=== PATIENT | female | born 1965 | race Caucasian/White ===

== ENCOUNTER → 2017-10-13 | Outpatient (CLI) | payer OTHER ==
[~2017-10-13] MED LIST: ALBU8.5H8 INH; AMLO5TAB2 PO; FLUT1DIS3 INH; LOSA50TA6 PO
== END | disposition home or self-care (01) ==
LOC: CFH 11:05 → EDSTATUS 11:15
PROVIDERS: ATTEND Nurse Practitioner Family
DX: Z12.31 Encounter for screening mammogram for malignant neoplasm of breast (principal)
CPT/HCPCS: 77067

== ENCOUNTER → 2018-01-06 | Outpatient (CLI) | payer OTHER ==
[~2018-01-06] MED LIST changes: +GADOBUTROL 7.5 MMOL/7.5 ML VIAL ONE
== END | disposition home or self-care (01) ==
LOC: CFH 13:31
PROVIDERS: ATTEND Obstetrics & Gynecology
DX: Z08 Encounter for follow-up examination after completed treatment for malignant neoplasm (principal); Z85.3 Personal history of malignant neoplasm of breast
CPT/HCPCS: A9585; C8908

== ENCOUNTER → 2018-04-29 | Outpatient (CLI) | payer OTHER ==
[~2018-04-29] MED LIST changes: -AMLO5TAB2 PO; +AMLO5TAB7 PO; -GADOBUTROL 7.5 MMOL/7.5 ML VIAL ONE; -LOSA50TA6 PO; +LOSA50TA7 PO
== END | disposition home or self-care (01) ==
LOC: CFH 15:16
PROVIDERS: ATTEND Nurse Practitioner Family
DX: M25.562 Pain in left knee (principal)

== ENCOUNTER 2019-05-06 12:55 | Outpatient (CLI) ==
[~2019-05-06 12:55] MED LIST changes: +AMLO-150 PO; -AMLO5TAB7 PO; +LOSA50TA14 PO; -LOSA50TA7 PO
[2019-05-06] MEDS ORDERED: GADOTERATE 10 MMOL/20 ML VIAL ONE (15:41)
== END 2019-05-06 23:59 | disposition home or self-care (01) ==
LOC: CFH 12:55
PROVIDERS: ATTEND Obstetrics & Gynecology Gynecology
DX: Z12.31 Encounter for screening mammogram for malignant neoplasm of breast (principal); Z80.3 Family history of malignant neoplasm of breast
CPT/HCPCS: A9575; C8908; C8937; 77049

== ENCOUNTER 2020-01-23 11:06 | Inpatient (IN) | payer OTHER ==
[~2020-01-23] VITALS: Ht 170.2 cm; Wt 92.6 kg
[2020-01-23] MEDS ORDERED: SODIUM CHLORIDE 0.9% 1,000 ML IV ONE (11:23)
[2020-01-23] MEDS ORDERED: ONDANSETRON 2MG/ML, 2ML IVPush ONE (11:30)
[2020-01-23] MEDS ORDERED: MORPHINE SULFATE 4 MG/ML, 1ML IVPush PRN (11:30)
[2020-01-23] MEDS ORDERED: SODIUM CHLORIDE FLUSH 10ML SYR IVF ONE (11:30)
[2020-01-23] MEDS ORDERED: MORPHINE SULFATE 4 MG/ML, 1ML ONE (11:37)
[2020-01-23] MEDS ORDERED: ONDANSETRON 2MG/ML, 2ML ONE (11:37)
[2020-01-23 11:52] LABS: BASOPHILS % (AUTO) 0 % (0-1); EOSINOPHILS # (AUTO) 0.02 x10^3/uL (0-0.4); EOSINOPHILS % (AUTO) 0 % (1-7); LYMPHOCYTES % (AUTO) 4 % (22-44); MD NO; MEAN CORPUSCULAR HEMOGLOBIN 31.4 pg (27.0-34.8); MEAN CORPUSCULAR HGB CONC 33.4 g/dL (32.4-35.8); MEAN CORPUSCULAR VOLUME 94.2 fL (80-100); MEAN PLATELET VOLUME 9.2 fL (7.4-10.4); MONOCYTES # (AUTO) 0.27 x10^3/uL (0.2-0.8); MONOCYTES % (AUTO) 4 % (2-9); NEUTROPHILS % (AUTO) 92 % (42-75); PLATELET COUNT 247 x10^3/uL (130-400); RED BLOOD COUNT 4.59 x10^6/uL (3.82-5.3); RED CELL DISTRIBUTION WIDTH 13.5 % (9.6-15.2)
--- NOTE | 2020-01-23 11:58 | NUR ---
C/O INTERMITTENT SEVERE CRAMPING, GENERALIZED ABD PAIN, DIARRHEA, N/V. STARTED 031 TODAY. TOOK IMMODIUM (LAST DOSE 1000) AND ACTIVATED CHARCOAL (LAST DOSE 1000). LAST ORAL INTAKE: FOOD 1899. ATE AT HOME. PT'S MOM, WHO LIVES WITH THEM, HAS HAD DIARRHEA (HAS HX OF DIVERTICULITIS). NEITHER PT NOR MOM HAVE BEEN ON ANTIBIOTICS RECENTLY. LMP: A COUPLE OF WEEKS AGO. DENIES UTI SX.
[2020-01-23 12:03] LABS: ALANINE AMINOTRANSFERASE 118 U/L (12-78); ALBUMIN 3.7 g/dL (3.4-5.0); ANION GAP 9 mmol/L (5-15); CALCIUM 9.5 mg/dL (8.5-10.1); CHLORIDE 107 mmol/L (98-107); CREATININE 0.97 mg/dL (0.55-1.02)
[2020-01-23 12:05] LABS: ALKALINE PHOSPHATASE 56 U/L (45-117); BILIRUBIN,TOTAL 0.7 mg/dL (0.2-1.0); TOTAL PROTEIN 7.5 g/dL (6.4-8.2)
[2020-01-23] MEDS ORDERED: MONT10TA11 PO (12:06)
[2020-01-23] MEDS ORDERED: AMLO5TAB10 PO (12:06)
[2020-01-23] MEDS ORDERED: COLE1TAB2 PO (12:06)
[2020-01-23] MEDS ORDERED: VALS80TA30 PO (12:06)
[2020-01-23] MEDS ORDERED: FENO145T19 PO (12:06)
--- NOTE | 2020-01-23 12:19 | NUR ---
AMBUALTORY TO & FROM P[facility]O BR W/OUT INCIDENT; GAIT SLOW & STEADY. VOIDED SPECIMEN PROVIDED. PT REPORTS DECREASE IN CRAMPING AND PAIN.
[2020-01-23 12:35] LABS: MICROSCOPIC INDICATED
--- NOTE | 2020-01-23 12:35 | NUR ---
PT REPORTS NAUSEA FROM MRI CONTRAST, NOT CT CONTRAST, PREVIOUSLY REPORTED. CONSULTED DR TOURE. PT TO CT PER YUNIEL
[2020-01-23] MEDS ORDERED: OMNIPAQUE 350 MG/ML, 100ML BOTTLE ONE (12:46)
--- NOTE | 2020-01-23 15:05 | NUR ---
[facility] AT .
[2020-01-23] MEDS ORDERED: METRONIDAZOLE PMX 500MG/100ML 100 ML IV SCH (15:30)
[2020-01-23] MEDS ORDERED: ONDANSETRON 2MG/ML, 2ML IVPush PRN (15:30)
[2020-01-23] MEDS ORDERED: CEFTRIAXONE PMX 1GM/50ML 50 ML IV SCH (15:30)
[2020-01-23] MEDS ORDERED: OXYcodone IR 5MG TABLET PO PRN (15:30)
[2020-01-23 15:46] LABS: TROPONIN I < 0.015 ng/mL (0.000-0.045)
--- NOTE | 2020-01-23 16:02 | NUR ---
PT REPORT TO BALDEMAR NAVARRO FOR ROOM [id number]
[2020-01-23] MEDS ORDERED: CEFTRIAXONE PMX 1GM/50ML 50 ML ONE (16:19)
[2020-01-23] MEDS ORDERED: METRONIDAZOLE PMX 500MG/100ML 100 ML ONE (16:19)
[2020-01-23] MEDS ORDERED: HEPARIN 5,000 UNITS/ML, 1ML ONE (16:19)
[2020-01-23] MEDS ORDERED: PANTOPRAZOLE 40 MG IV ONE (16:19)
[2020-01-23] MEDS: PANTOPRAZOLE 40 MG IV IVPush SCH (16:31)
[2020-01-23] MEDS: HEPARIN 5,000 UNITS/ML, 1ML SQ SCH ×2 (16:40→23:52)
--- NOTE | 2020-01-23 16:40 | NUR ---
NS INFUSING. PROTONIX, HEPARIN GIVEN PER EMAR. ROCEPHIN HUNG, INFUSING AT 100ML/HR VIA PUMP. FLAGYL WILL BE SENT TO FLOOR W/ PT. IV SITE PATENT.
[2020-01-23] MEDS: SODIUM CHLORIDE 0.9% 1,000 ML IV SCH (17:12)
[2020-01-23] MEDS: METRONIDAZOLE PMX 500MG/100ML 100 ML IV SCH ×2 (17:20→17:21)
[2020-01-23] MEDS: morphine SULFATE 10 MG/ML, 1ML IVPush PRN ×2 (18:15→23:52)
[2020-01-23 20:39] VITALS: BP 125/78
[2020-01-23 20:54] LABS: TROPONIN I < 0.015 ng/mL (0.000-0.045)
[2020-01-23] MEDS: MONTELUKAST 10 MG TABLET PO SCH (21:00)
[2020-01-24 01:21] VITALS: BP 114/72
[2020-01-24] MEDS: METRONIDAZOLE PMX 500MG/100ML 100 ML IV SCH ×3 (03:15→19:32)
[2020-01-24] MEDS: SODIUM CHLORIDE 0.9% 1,000 ML IV SCH ×2 (03:15→13:46)
[2020-01-24] MEDS: PANTOPRAZOLE 40 MG IV IVPush SCH ×2 (03:15→17:15)
[2020-01-24 05:02] LABS: BASOPHILS # (AUTO) 0.01 x10^3/uL (0-0.1); BASOPHILS % (AUTO) 0 % (0-1); EOSINOPHILS # (AUTO) 0.05 x10^3/uL (0-0.4); EOSINOPHILS % (AUTO) 1 % (1-7); LYMPHOCYTES # (AUTO) 0.84 x10^3/uL (1-3.4); LYMPHOCYTES % (AUTO) 18 % (22-44); MD NO; MEAN CORPUSCULAR HEMOGLOBIN 31.4 pg (27.0-34.8); MEAN CORPUSCULAR HGB CONC 33.5 g/dL (32.4-35.8); MEAN CORPUSCULAR VOLUME 93.7 fL (80-100); MEAN PLATELET VOLUME 9.1 fL (7.4-10.4); MONOCYTES # (AUTO) 0.37 x10^3/uL (0.2-0.8); MONOCYTES % (AUTO) 8 % (2-9); NEUTROPHILS # (AUTO) 3.45 x10^3/uL (1.8-6.8); NEUTROPHILS % (AUTO) 73 % (42-75); PLATELET COUNT 183 x10^3/uL (130-400); RED BLOOD COUNT 3.94 x10^6/uL (3.82-5.3); RED CELL DISTRIBUTION WIDTH 13.9 % (9.6-15.2)
[2020-01-24 05:13] LABS: ALANINE AMINOTRANSFERASE 118 U/L (12-78); ANION GAP 7 mmol/L (5-15); CHLORIDE 109 mmol/L (98-107); CREATININE 1.02 mg/dL (0.55-1.02)
[2020-01-24 05:24] LABS: ALKALINE PHOSPHATASE 48 U/L (45-117); BILIRUBIN,TOTAL 0.4 mg/dL (0.2-1.0); TOTAL PROTEIN 6.1 g/dL (6.4-8.2)
[2020-01-24 06:58] VITALS: BP 132/78
[2020-01-24] MEDS: HEPARIN 5,000 UNITS/ML, 1ML SQ SCH ×3 (08:00→23:25)
[2020-01-24] MEDS: AMLODIPINE 5 MG TABLET PO SCH (09:03)
[2020-01-24 14:11] VITALS: BP 139/81
[2020-01-24] MEDS: NS + 20MEQ KCL 1,000 ML IV SCH (17:15)
[2020-01-24] MEDS: CEFTRIAXONE PMX 1GM/50ML 50 ML IV SCH (17:15)
[2020-01-24] MEDS: ACETAMINOPHEN 325 MG TABLET PO PRN ×2 (17:22→23:24)
[2020-01-24] MEDS: MONTELUKAST 10 MG TABLET PO SCH (19:32)
[2020-01-24 20:27] VITALS: BP 122/72
[2020-01-25 01:41] LABS: CLOSTRIDIUM DIFFICILE ANTIGEN NEGATIVE; CLOSTRIDIUM DIFFICILE TOXIN NEGATIVE (Negative)
[2020-01-25 01:57] VITALS: BP 136/75
[2020-01-25] MEDS: PANTOPRAZOLE 40 MG IV IVPush SCH ×2 (03:33→18:29)
[2020-01-25] MEDS: NS + 20MEQ KCL 1,000 ML IV SCH (03:34)
[2020-01-25] MEDS: METRONIDAZOLE PMX 500MG/100ML 100 ML IV SCH ×3 (03:34→19:34)
[2020-01-25 05:44] LABS: BASOPHILS # (AUTO) 0.02 x10^3/uL (0-0.1); BASOPHILS % (AUTO) 0 % (0-1); EOSINOPHILS # (AUTO) 0.17 x10^3/uL (0-0.4); EOSINOPHILS % (AUTO) 3 % (1-7); LYMPHOCYTES # (AUTO) 1.09 x10^3/uL (1-3.4); LYMPHOCYTES % (AUTO) 21 % (22-44); MD NO; MEAN CORPUSCULAR HEMOGLOBIN 31.2 pg (27.0-34.8); MEAN CORPUSCULAR HGB CONC 33.4 g/dL (32.4-35.8); MEAN CORPUSCULAR VOLUME 93.5 fL (80-100); MEAN PLATELET VOLUME 9.4 fL (7.4-10.4); MONOCYTES % (AUTO) 10 % (2-9); NEUTROPHILS # (AUTO) 3.47 x10^3/uL (1.8-6.8); NEUTROPHILS % (AUTO) 66 % (42-75); PLATELET COUNT 169 x10^3/uL (130-400); RED BLOOD COUNT 3.63 x10^6/uL (3.82-5.3); RED CELL DISTRIBUTION WIDTH 13.5 % (9.6-15.2)
[2020-01-25 05:59] LABS: ALANINE AMINOTRANSFERASE 116 U/L (12-78); ALBUMIN 2.8 g/dL (3.4-5.0); ANION GAP 7 mmol/L (5-15); CALCIUM 8.1 mg/dL (8.5-10.1); CHLORIDE 108 mmol/L (98-107); CREATININE 0.79 mg/dL (0.55-1.02)
[2020-01-25 06:01] LABS: ALKALINE PHOSPHATASE 59 U/L (45-117); BILIRUBIN,TOTAL 0.5 mg/dL (0.2-1.0); TOTAL PROTEIN 6.1 g/dL (6.4-8.2)
[2020-01-25 07:52] VITALS: BP 131/76
[2020-01-25] MEDS: HEPARIN 5,000 UNITS/ML, 1ML SQ SCH ×3 (08:00→23:23)
[2020-01-25] MEDS ORDERED: ADVAIR 250 MCG INH SCH (09:00)
[2020-01-25] MEDS: ALBUTEROL HOMEINH SCH (09:00)
[2020-01-25] MEDS: ADVAIR HOMEINH SCH (09:00)
[2020-01-25] MEDS ORDERED: TEMPLATE NON-FORMULARY MED. (albuterol sulfate 1 PUFF) INH SCH (09:00)
[2020-01-25] MEDS: AMLODIPINE 5 MG TABLET PO SCH (11:24)
[2020-01-25] MEDS: ACETAMINOPHEN 325 MG TABLET PO PRN (11:39)
[2020-01-25] MEDS ORDERED: POTASSIUM CHLORIDE 20 MEQ TAB.ER.PRT PO ONE ×2 (14:00→20:00)
[2020-01-25 14:34] VITALS: BP 116/65
[2020-01-25] MEDS: CEFTRIAXONE PMX 1GM/50ML 50 ML IV SCH (18:21)
[2020-01-25] MEDS ORDERED: ACETAMINOPHEN 325 MG TABLET PO PRN (18:49)
[2020-01-25] MEDS: MONTELUKAST 10 MG TABLET PO SCH (20:10)
[2020-01-25] MEDS: SIMETHICONE 125 MG CHEW TAB PO SCH (20:10)
[2020-01-25 23:34] VITALS: BP 120/76
[2020-01-26 02:57] VITALS: BP 115/70
[2020-01-26] MEDS: METRONIDAZOLE PMX 500MG/100ML 100 ML IV SCH ×3 (02:59→19:25)
[2020-01-26 05:49] LABS: BASOPHILS # (AUTO) 0.01 x10^3/uL (0-0.1); BASOPHILS % (AUTO) 0 % (0-1); EOSINOPHILS # (AUTO) 0.18 x10^3/uL (0-0.4); EOSINOPHILS % (AUTO) 3 % (1-7); LYMPHOCYTES # (AUTO) 1.08 x10^3/uL (1-3.4); LYMPHOCYTES % (AUTO) 15 % (22-44); MD NO; MEAN CORPUSCULAR HEMOGLOBIN 31.2 pg (27.0-34.8); MEAN CORPUSCULAR HGB CONC 33.6 g/dL (32.4-35.8); MEAN PLATELET VOLUME 9.4 fL (7.4-10.4); MONOCYTES # (AUTO) 0.56 x10^3/uL (0.2-0.8); MONOCYTES % (AUTO) 8 % (2-9); NEUTROPHILS % (AUTO) 74 % (42-75); PLATELET COUNT 205 x10^3/uL (130-400); RED BLOOD COUNT 3.86 x10^6/uL (3.82-5.3); RED CELL DISTRIBUTION WIDTH 13.4 % (9.6-15.2)
[2020-01-26 06:01] LABS: CHLORIDE 109 mmol/L (98-107)
[2020-01-26 06:14] LABS: ALANINE AMINOTRANSFERASE 145 U/L (12-78); ALKALINE PHOSPHATASE 93 U/L (45-117); ANION GAP 7 mmol/L (5-15); BILIRUBIN,TOTAL 0.5 mg/dL (0.2-1.0); CALCIUM 8.7 mg/dL (8.5-10.1); CREATININE 0.82 mg/dL (0.55-1.02); TOTAL PROTEIN 6.8 g/dL (6.4-8.2)
[2020-01-26] MEDS: PANTOPRAZOLE 40 MG IV IVPush SCH (06:50)
[2020-01-26 07:49] VITALS: BP 137/78
[2020-01-26] MEDS: HEPARIN 5,000 UNITS/ML, 1ML SQ SCH ×3 (08:00→23:59)
[2020-01-26 08:24] LABS: C-REACTIVE PROTEIN, QUANT 6.1 mg/dL (0.02-0.49)
[2020-01-26] MEDS: ALBUTEROL HOMEINH SCH (09:00)
[2020-01-26] MEDS: ADVAIR HOMEINH SCH (09:00)
[2020-01-26 09:33] LABS: HCT (SEDRATE) 35.9 % (34.6-47.8)
[2020-01-26] MEDS: AMLODIPINE 5 MG TABLET PO SCH (11:04)
[2020-01-26] MEDS: POTASSIUM CHLORIDE 20 MEQ TAB.ER.PRT PO SCH ×2 (11:04→17:42)
[2020-01-26] MEDS: SIMETHICONE 125 MG CHEW TAB PO SCH ×2 (11:04→20:56)
[2020-01-26] MEDS: PANTOPRAZOLE 40MG TABLET PO SCH (11:12)
[2020-01-26 12:36] VITALS: BP 147/78
[2020-01-26] MEDS: LOPERAMIDE 2 MG CAPSULE PO PRN ×2 (14:30→20:52)
[2020-01-26] MEDS: SODIUM CHLORIDE 0.9% 1,000 ML IV SCH (14:32)
[2020-01-26] MEDS: CEFTRIAXONE PMX 1GM/50ML 50 ML IV SCH (17:41)
[2020-01-26 19:40] VITALS: BP 128/78
[2020-01-26] MEDS: MONTELUKAST 10 MG TABLET PO SCH (20:56)
[2020-01-27 01:30] VITALS: BP 136/74
[2020-01-27] MEDS: METRONIDAZOLE PMX 500MG/100ML 100 ML IV SCH ×2 (03:04→10:47)
[2020-01-27] MEDS: SODIUM CHLORIDE 0.9% 1,000 ML IV SCH (03:07)
[2020-01-27 05:28] LABS: BASOPHILS # (AUTO) 0.04 x10^3/uL (0-0.1); BASOPHILS % (AUTO) 1 % (0-1); EOSINOPHILS # (AUTO) 0.22 x10^3/uL (0-0.4); EOSINOPHILS % (AUTO) 3 % (1-7); LYMPHOCYTES # (AUTO) 1.11 x10^3/uL (1-3.4); LYMPHOCYTES % (AUTO) 17 % (22-44); MD NO; MEAN CORPUSCULAR HEMOGLOBIN 31.1 pg (27.0-34.8); MEAN CORPUSCULAR HGB CONC 33.3 g/dL (32.4-35.8); MEAN CORPUSCULAR VOLUME 93.6 fL (80-100); MEAN PLATELET VOLUME 9.8 fL (7.4-10.4); MONOCYTES # (AUTO) 0.61 x10^3/uL (0.2-0.8); MONOCYTES % (AUTO) 9 % (2-9); NEUTROPHILS # (AUTO) 4.76 x10^3/uL (1.8-6.8); NEUTROPHILS % (AUTO) 71 % (42-75); PLATELET COUNT 231 x10^3/uL (130-400); RED BLOOD COUNT 3.99 x10^6/uL (3.82-5.3); RED CELL DISTRIBUTION WIDTH 13.8 % (9.6-15.2)
[2020-01-27 05:42] LABS: ALBUMIN 2.9 g/dL (3.4-5.0); ANION GAP 7 mmol/L (5-15); CALCIUM 8.9 mg/dL (8.5-10.1); CHLORIDE 110 mmol/L (98-107)
[2020-01-27 05:47] LABS: ALANINE AMINOTRANSFERASE 122 U/L (12-78); ALKALINE PHOSPHATASE 101 U/L (45-117); BILIRUBIN,TOTAL 0.3 mg/dL (0.2-1.0); CREATININE 0.75 mg/dL (0.55-1.02); TOTAL PROTEIN 6.6 g/dL (6.4-8.2)
[2020-01-27] MEDS: PANTOPRAZOLE 40MG TABLET PO SCH (06:20)
[2020-01-27] MEDS: HEPARIN 5,000 UNITS/ML, 1ML SQ SCH (08:00)
[2020-01-27] MEDS: ALBUTEROL HOMEINH SCH (09:00)
[2020-01-27] MEDS: ADVAIR HOMEINH SCH (09:00)
[2020-01-27] MEDS: POTASSIUM CHLORIDE 20 MEQ TAB.ER.PRT PO SCH (10:46)
[2020-01-27] MEDS: AMLODIPINE 5 MG TABLET PO SCH (10:46)
[2020-01-27] MEDS: SIMETHICONE 125 MG CHEW TAB PO SCH (10:47)
[2020-01-27] MEDS ORDERED: SIME125T PO (10:54)
[2020-01-27] MEDS ORDERED: AMOX1TAB64 PO (10:54)
[2020-01-27] MEDS ORDERED: POTA20TA6 PO (10:54)
[2020-01-27] MEDS ORDERED: LOPE2CAP PO (10:54)
[2020-01-27 11:07] VITALS: BP 158/78
[2020-01-27 15:05] VITALS: BP 153/90
== END 2020-01-27 15:25 | disposition home or self-care (01) | DRG 392 ==
LOC: ED 12:50 → EDIP 14:00 → 3N 16:50 → DCLOUNGE 01-27 15:25
PROVIDERS: ADMIT Hospitalist; ATTEND Internal Medicine
DX: A09 Infectious gastroenteritis and colitis, unspecified (principal); E87.2 Acidosis; I10 Essential (primary) hypertension; E87.6 Hypokalemia; R94.5 Abnormal results of liver function studies; J45.909 Unspecified asthma, uncomplicated; E78.5 Hyperlipidemia, unspecified; Z91.030 Bee allergy status; Z88.1 Allergy status to other antibiotic agents; Z91.041 Radiographic dye allergy status; Z79.84 Long term (current) use of oral hypoglycemic drugs; Z79.51 Long term (current) use of inhaled steroids
CPT/HCPCS: 36415; 74177; 80053; 81001; 82150; 83605; 83690; 83735; 84100; 84443; 84484; 85025; 85651; 86140; 87040; 87086; 87324; 96374; 96375; G0378; J0696; J1644; J2405; J3480; Q9967; C9113; J2270; J7030

== ENCOUNTER 2020-07-12 12:23 | Emergency (ER) | payer OTHER ==
[~2020-07-12] VITALS: Ht 170.2 cm; Wt 90.8 kg
[~2020-07-12 12:23] MED LIST changes: +AMLO-210 PO; +AMOX1TAB64 PO; +COLE1TAB2 PO; +FENO145T19 PO; +LOPE2CAP PO; +MONT10TA96 PO; +POTA20TA6 PO; +SIME125T PO; +VALS80TA30 PO
--- NOTE | 2020-07-12 12:40 | NUR ---
PT WHEELED BACK TO ROOM BY [employer] VIA WC.
--- NOTE | 2020-07-12 12:44 | NUR ---
FIRST ENCOUNTER WITH PT: PT PRESENTED TO ED D/T INCREASING SOB. PT STATES ON FRIDAY WAS DIAGNOSED WITH "DOUBLE PNA" AND COVID TEST CAME BACK "POSITIVE" TODAY. PT APPEARS TO BE SOB WITH EXERTION. PT ABLE TO ANSWER RN QUESTIONS WITHOUT ANY DISTRESS. PT CURRENTLY 94% RA.
[2020-07-12] MEDS ORDERED: SODIUM CHLORIDE FLUSH 10ML SYR IVF ONE (13:00)
[2020-07-12] MEDS ORDERED: DEXAMETHASONE 4 MG/ML, 1ML IVPush ONE (13:00)
[2020-07-12] MEDS ORDERED: DEXAMETHASONE 4 MG/ML, 5ML ONE (13:04)
--- NOTE | 2020-07-12 13:06 | NUR ---
PT MEDICATED PER EMAR. LAB AT BEDSIDE OBTAINING LABS.
--- NOTE | 2020-07-12 13:11 | NUR ---
BREAK RN: RAD IN ROOM.
[2020-07-12 13:13] LABS: BASOPHILS % (AUTO) 0 % (0-1); EOSINOPHILS % (AUTO) 1 % (1-7); LYMPHOCYTES % (AUTO) 8 % (22-44); MEAN CORPUSCULAR HEMOGLOBIN 31.2 pg (27.0-34.8); MEAN CORPUSCULAR HGB CONC 33.5 g/dL (32.4-35.8); MEAN PLATELET VOLUME 8.9 fL (7.4-10.4); MONOCYTES % (AUTO) 6 % (2-9); NEUTROPHILS % (AUTO) 85 % (42-75); PLATELET COUNT 303 x10^3/uL (130-400); RED BLOOD COUNT 4.62 x10^6/uL (3.82-5.3); RED CELL DISTRIBUTION WIDTH 13.3 % (9.6-15.2)
[2020-07-12 13:23] LABS: ALBUMIN 3.5 g/dL (3.4-5.0); ANION GAP 8 mmol/L (5-15); CALCIUM 9.5 mg/dL (8.5-10.1); CHLORIDE 108 mmol/L (98-107); CREATININE 1.02 mg/dL (0.55-1.02); MD NO
--- NOTE | 2020-07-12 13:24 | NUR ---
BREAK RN: PT SITTING ON GURNEY W/ CALL LIGHT IN REACH AND SIDE RAILS UPX2. RESP EVEN AND UNLABORED, NANCYN. AWAITING LABS AND CXR RESULTS.
--- NOTE | 2020-07-12 13:39 | NUR ---
BREAK RN: ALL TESTS RESULTED. PT IS UP FOR RECHECK AT THIS TIME.
[2020-07-12 14:19] VITALS: BP 122/68
--- NOTE | 2020-07-12 14:19 | NUR ---
PT BEING DISCHARGED HOME IN A STABLE CONDITION. DC INSTRUCTIONS DISCUSSED WITH PT. PT VERBALIZED UNDERSTANDING. RN REMOVED PIV WITH TIP INTACT. NO FUTHER QUESTIONS OR CONCERNS EXPRESSED AT THIS TIME. PT GETTING SELF DRESSED.
== END 2020-07-12 14:21 | disposition home or self-care (01) ==
LOC: ED 13:30
DX: U07.1 COVID-19 (principal); J18.9 Pneumonia, unspecified organism; J06.9 Acute upper respiratory infection, unspecified; B34.9 Viral infection, unspecified; R50.9 Fever, unspecified; R09.81 Nasal congestion; M79.10 Myalgia, unspecified site; R05 Cough; R06.02 Shortness of breath; I10 Essential (primary) hypertension
CPT/HCPCS: 36415; 71045; 80048; 82040; 83605; 85025; 85379; 87040; 93005; 96374; 99285; J1100

== ENCOUNTER 2021-03-07 05:32 | Inpatient (IN) | payer OTHER ==
[~2021-03-07] VITALS: Ht 170.2 cm; Wt 96.6 kg
[~2021-03-07 05:32] MED LIST changes: +MONT10TA17 PO; -MONT10TA96 PO
[2021-03-07] MEDS ORDERED: SODIUM CHLORIDE 0.9% 1,000ML IVBOLUS ONE (06:00)
[2021-03-07] MEDS ORDERED: ACETAMINOPHEN 500 MG TABLET PO ONE (06:00)
--- NOTE | 2021-03-07 06:00 | NUR ---
SOLOMON SWAB WALKED TO THE LAB BY THIS RN.
[2021-03-07] MEDS ORDERED: ONDANSETRON 2MG/ML, 2ML ONE (06:07)
[2021-03-07] MEDS ORDERED: ACETAMINOPHEN 500 MG TABLET ONE (06:08)
[2021-03-07 06:11] LABS: BASOPHILS % (AUTO) 0 % (0-1); EOSINOPHILS % (AUTO) 1 % (1-7); LYMPHOCYTES % (AUTO) 7 % (22-44); MEAN CORPUSCULAR HEMOGLOBIN 31.3 pg (27.0-34.8); MEAN PLATELET VOLUME 9.8 fL (7.4-10.4); MONOCYTES % (AUTO) 5 % (2-9); NEUTROPHILS % (AUTO) 88 % (42-75); PLATELET COUNT 200 x10^3/uL (130-400); RED BLOOD COUNT 4.62 x10^6/uL (3.82-5.3); RED CELL DISTRIBUTION WIDTH 13.3 % (9.6-15.2)
[2021-03-07 06:22] LABS: ALBUMIN 3.9 g/dL (3.4-5.0); ANION GAP 8 mmol/L (5-15); CALCIUM 9.7 mg/dL (8.5-10.1); CHLORIDE 104 mmol/L (98-107)
[2021-03-07] MEDS ORDERED: ONDANSETRON 2MG/ML, 2ML IVPush ONE (06:30)
[2021-03-07 06:31] LABS: ALANINE AMINOTRANSFERASE 121 U/L (12-78); ALKALINE PHOSPHATASE 79 U/L (45-117); CREATININE 0.85 mg/dL (0.55-1.02); TOTAL PROTEIN 7.9 g/dL (6.4-8.2)
--- NOTE | 2021-03-07 06:53 | NUR ---
REPORT GIVEN TO BALDEMAR BERRY
[2021-03-07] MEDS ORDERED: OMNIPAQUE 350 MG/ML, 100ML BOTTLE ONE (08:55)
--- NOTE | 2021-03-07 09:05 | NUR ---
PT BECAME INCREASINGLY HYPOXIC ON RA WITH AMBULATION. PT DISPO DISCUSSED WITH DR. QUEEN ABOUT THE NEED FOR PROBABLE HOSPITAL ADMISSION.
[2021-03-07] MEDS ORDERED: CEFTRIAXONE 1,000 MG in DEXTROSE 5% 50 ML IVPB ONE (09:30)
[2021-03-07] MEDS ORDERED: DOXYCYCLINE 100 MG in DEXTROSE 5% 250 ML IV ONE (09:30)
--- NOTE | 2021-03-07 10:05 | NUR ---
PT AMBULATES TO RESTROOM WITH STEADY GAIT AT THIS TIME.
--- NOTE | 2021-03-07 10:19 | NUR ---
pt medicated per mar.
--- NOTE | 2021-03-07 10:20 | NUR ---
ATTEMPTED REPORT OF PT TO RN MOUNA. PER CENTRAL SUPPLY CLERK, MOUNA UNAVAILABLE AND WILL CALL BACK FOR REPORT.
--- NOTE | 2021-03-07 10:39 | NUR ---
REPORT OF PT TO RN MOUNA. ALL QUESTIONS ANSWERED. TECH PAGED FOR TRANSPORT OF PT FROM ED TO FLOOR AT THIS TIME.
[2021-03-07] MEDS ORDERED: ZOLPIDEM 5MG TABLET PO PRN (11:00)
[2021-03-07] MEDS ORDERED: ONDANSETRON 2MG/ML, 2ML IVPB PRN (11:00)
[2021-03-07] MEDS ORDERED: PHARMACY MAY ADJ FOR RENAL FX MC PRN (11:00)
[2021-03-07 13:00] VITALS: BP 149/80
[2021-03-07] MEDS: ACETAMINOPHEN 325 MG TABLET PO PRN ×2 (13:22→18:43)
[2021-03-07] MEDS: GUAIFENESIN/DM 200-20MG, 10ML UDC PO PRN ×2 (13:23→22:06)
[2021-03-07] MEDS: ENOXAPARIN 40 MG/0.4 ML SQ SCH (13:23)
[2021-03-07 20:54] VITALS: BP 128/77
[2021-03-07] MEDS ORDERED: DOXYCYCLINE 100MG TABLET PO ONE (21:00)
[2021-03-07] MEDS: CEFTRIAXONE 1,000 MG in DEXTROSE 5% 50 ML IVPB SCH (21:39)
[2021-03-08 00:30] VITALS: BP 138/79
[2021-03-08] MEDS: ACETAMINOPHEN 325 MG TABLET PO PRN ×3 (00:52→11:35)
[2021-03-08 06:56] VITALS: BP 124/75
[2021-03-08 07:46] LABS: BASOPHILS % (AUTO) 0 % (0-1); EOSINOPHILS % (AUTO) 1 % (1-7); LYMPHOCYTES % (AUTO) 9 % (22-44); MEAN CORPUSCULAR HEMOGLOBIN 31.3 pg (27.0-34.8); MEAN CORPUSCULAR HGB CONC 33.8 g/dL (32.4-35.8); MEAN PLATELET VOLUME 9.8 fL (7.4-10.4); MONOCYTES % (AUTO) 8 % (2-9); NEUTROPHILS % (AUTO) 82 % (42-75); PLATELET COUNT 167 x10^3/uL (130-400); RED BLOOD COUNT 4.12 x10^6/uL (3.82-5.3); RED CELL DISTRIBUTION WIDTH 13.7 % (9.6-15.2)
[2021-03-08 07:51] LABS: CHLORIDE 106 mmol/L (98-107)
[2021-03-08 07:56] LABS: ANION GAP 6 mmol/L (5-15); CALCIUM 9.1 mg/dL (8.5-10.1); CREATININE 0.72 mg/dL (0.55-1.02)
[2021-03-08] MEDS: AMLODIPINE 5 MG TABLET PO SCH (08:11)
[2021-03-08] MEDS: VALSARTAN 80 MG TABLET PO SCH (08:12)
[2021-03-08] MEDS: CEFTRIAXONE 1,000 MG in DEXTROSE 5% 50 ML IVPB SCH ×2 (09:53→20:39)
[2021-03-08] MEDS: POTASSIUM CHLORIDE 20 MEQ TAB.ER.PRT PO SCH (09:53)
[2021-03-08] MEDS: ENOXAPARIN 40 MG/0.4 ML SQ SCH (11:35)
[2021-03-08 12:14] VITALS: BP 123/73
[2021-03-08] MEDS ORDERED: BUTALB/APAP/CAFFEINE 50MG/325MG/40MG PO PRN (12:30)
[2021-03-08] MEDS: methylPREDNISolone SOD SUCC 125 MG/2 ML IVPush SCH (14:08)
[2021-03-08 20:03] VITALS: BP 152/77
[2021-03-08] MEDS: DIPHENHYDRAMINE 50 MG CAPSULE PO PRN (20:39)
[2021-03-08] MEDS: IBUPROFEN 200 MG TABLET PO PRN (20:40)
[2021-03-08] MEDS: ALBUTEROL SULFATE 2.5 MG/3 ML NPPB SCH (20:41)
[2021-03-09 01:28] VITALS: BP 126/78
[2021-03-09] MEDS: methylPREDNISolone SOD SUCC 125 MG/2 ML IVPush SCH ×2 (01:37→12:14)
[2021-03-09 07:14] VITALS: BP 145/81
[2021-03-09] MEDS: CEFTRIAXONE 1,000 MG in DEXTROSE 5% 50 ML IVPB SCH ×2 (09:01→20:55)
[2021-03-09] MEDS: AMLODIPINE 5 MG TABLET PO SCH (09:02)
[2021-03-09] MEDS: POTASSIUM CHLORIDE 20 MEQ TAB.ER.PRT PO SCH (09:02)
[2021-03-09] MEDS: VALSARTAN 80 MG TABLET PO SCH (09:02)
[2021-03-09] MEDS: ENOXAPARIN 40 MG/0.4 ML SQ SCH (11:00)
[2021-03-09] MEDS: ACETAMINOPHEN 325 MG TABLET PO PRN (12:29)
[2021-03-09 12:38] VITALS: BP 147/69
[2021-03-09 20:17] VITALS: BP 157/66
[2021-03-09] MEDS: ALBUTEROL SULFATE 2.5 MG/3 ML NPPB SCH (20:41)
[2021-03-09] MEDS: DIPHENHYDRAMINE 50 MG CAPSULE PO PRN (20:56)
[2021-03-09] MEDS: IBUPROFEN 200 MG TABLET PO PRN (20:56)
[2021-03-10 00:52] VITALS: BP 131/71
[2021-03-10] MEDS: methylPREDNISolone SOD SUCC 125 MG/2 ML IVPush SCH ×2 (00:52→12:20)
[2021-03-10] MEDS ORDERED: ALBUTEROL/IPRATROPIUM 2.5MG/0.5MG, 3 ML NPPB PRN (04:30)
[2021-03-10 06:25] LABS: BASOPHILS % (AUTO) 0 % (0-1); EOSINOPHILS % (AUTO) 0 % (1-7); LYMPHOCYTES % (AUTO) 8 % (22-44); MEAN CORPUSCULAR HEMOGLOBIN 31.3 pg (27.0-34.8); MEAN CORPUSCULAR HGB CONC 33.7 g/dL (32.4-35.8); MEAN PLATELET VOLUME 9.8 fL (7.4-10.4); MONOCYTES % (AUTO) 5 % (2-9); NEUTROPHILS % (AUTO) 87 % (42-75); PLATELET COUNT 270 x10^3/uL (130-400); RED BLOOD COUNT 4.23 x10^6/uL (3.82-5.3); RED CELL DISTRIBUTION WIDTH 13.6 % (9.6-15.2)
[2021-03-10 06:34] LABS: ANION GAP 7 mmol/L (5-15); CALCIUM 9.8 mg/dL (8.5-10.1); CHLORIDE 107 mmol/L (98-107); CREATININE 0.78 mg/dL (0.55-1.02)
[2021-03-10 07:49] VITALS: BP 150/70
[2021-03-10] MEDS: POTASSIUM CHLORIDE 20 MEQ TAB.ER.PRT PO SCH (08:00)
[2021-03-10] MEDS: AMLODIPINE 5 MG TABLET PO SCH (09:58)
[2021-03-10] MEDS: CEFTRIAXONE 1,000 MG in DEXTROSE 5% 50 ML IVPB SCH (09:58)
[2021-03-10] MEDS: VALSARTAN 80 MG TABLET PO SCH (09:58)
[2021-03-10] MEDS: ENOXAPARIN 40 MG/0.4 ML SQ SCH (10:01)
[2021-03-10] MEDS ORDERED: CEFD300C37 PO (10:53)
[2021-03-10] MEDS ORDERED: METH4TAB2 PO (10:54)
== END 2021-03-10 13:03 | disposition home or self-care (01) | DRG 193 ==
LOC: ED 07:43 → 3N 09:12 → SUATTDRO 10:59 → 3N 11:06 → ED 12:06
PROVIDERS: ADMIT Internal Medicine; ATTEND Hospitalist
DX: J18.1 Lobar pneumonia, unspecified organism (principal); J96.01 Acute respiratory failure with hypoxia; I10 Essential (primary) hypertension; J20.9 Acute bronchitis, unspecified; J45.20 Mild intermittent asthma, uncomplicated; Z20.822 Contact with and (suspected) exposure to COVID-19; Z88.2 Allergy status to sulfonamides; Z91.030 Bee allergy status; Z91.041 Radiographic dye allergy status; Z86.16 Personal history of COVID-19; J42 Unspecified chronic bronchitis
CPT/HCPCS: 36415; 84145; 96374; 99285; J7613; 71045; 71275; 80048; 80053; 83615; 85025; 86140; 87040; 87070; 87205; 93005; G0378; J0696; J1650; J2405; J7060; Q9967; U0005; J2930; J7030; U0003